=== PATIENT | male | born 1960 ===

== ENCOUNTER 2018-06-22 17:01 | Emergency (ER) | payer SELFPAY ==
[2018-06-22 17:16] VITALS: PULSE 88; RESP 18; TEMP 99.5; O2SAT 99; BMI 26.6
--- NOTE | 2018-06-22 17:57 | C.PDOC ---
History Of Present Illness 57 year old male presents to the ED for evaluation of right wrist pain which began around 3 days ago. Patient states he was working, pulling on tree with a rope when he well backwards and smacked his right wrist against the ground. Patient denies falling onto the wrist and denies the tree falling on his wrist. Patient reports pain and stiffness to the area, and reports pain when trying to lift something heavy. Patient denies head injury, LOC, neck pain, extremity numbness/weakness. Time Seen by Provider: 06/22/18 17:34 Chief Complaint (Nursing): Finger,Hand,&Wrist History Per: Patient History/Exam Limitations: no limitations Onset/Duration Of Symptoms: Days (3) Current Symptoms Are (Timing): Still Present Quality: "Pain" Additional History Per: Patient Past Medical History Reviewed: Historical Data, Nursing Documentation, Vital Signs Vital Signs: Last Vital Signs Temp 99.5 F 06/22/18 17:08 Pulse 88 06/22/18 17:08 Resp 18 06/22/18 17:08 BP 166/113 H 06/22/18 17:08 Pulse Ox 99 06/22/18 17:08 - Medical History PMH: No Chronic Diseases Surgical History: No Surg Hx Family History: States: Unknown Family Hx - Social History Hx Alcohol Use: No Hx Substance Use: No - Immunization History Hx Tetanus Toxoid Vaccination: No Hx Influenza Vaccination: No Hx Pneumococcal Vaccination: No Review Of Systems Musculoskeletal: Positive for: Other (right wrist pain ) Neurological: Negative for: Weakness, Numbness, Other (LOC, head injury ) Physical Exam - Physical Exam Appears: Non-toxic, No Acute Distress Skin: Normal Color, Warm, Dry Extremity: No Normal ROM (slightly limited ROM of right wrist secondary to pain ), Tenderness (around right wrist ), Capillary Refill (less than 2 seconds ), No Swelling Pulses: Left Radial: Normal, Right Radial: Normal Neurological/Psych: Normal Speech, Normal Cognition, Normal Sensation ED Course And Treatment O2 Sat by Pulse Oximetry: 99 (on RA ) Pulse Ox Interpretation: Normal Medical Decision Making Medical Decision Making: Progress: Right wrist XR ordered and reviewed. Motrin PO, Norvasc PO, and Tylenol PO given. Sugartong splint applied to right wrist by CP and was checked by me. Disposition Counseled Patient/Family Regarding: Studies Performed, Diagnosis, Need For Followup, Rx Given - Disposition Referrals: Isaura,Imran, MD [Staff Provider] - [facility] [Outside] Disposition: HOME/ ROUTINE Disposition Time: 17:55 Condition: STABLE Prescriptions: amLODIPine [Norvasc] 5 mg PO DAILY #30 tab Ibuprofen [Motrin] 600 mg PO TID #15 tab Instructions: Wrist Fracture (DC) Forms: Gen Discharge Inst [place], [facility] ([place]), Work Excuse - POA Present On Arrival: None - Clinical Impression Clinical Impression: Wrist fracture, right, Hypertension - Scribe Statement The provider has reviewed the documentation as recorded by the Scribe (Jennifer Hilliard) Provider Attestation: All medical record entries made by the Scribe were at my direction and personally dictated by me. I have reviewed the chart and agree that the record accurately reflects my personal performance of the history, physical exam, medical decision making, and the department course for this patient. I have also personally directed, reviewed, and agree with the discharge instructions and disposition.
--- NOTE | 2018-06-22 18:33 | RAD ---
Date of service: 06/22/2018 PROCEDURE: Right Wrist Radiographs. HISTORY: fall COMPARISON: None. FINDINGS: BONES: No acute fracture. Probable old ununited ulnar styloid process fracture. There is a well-corticated minimally fragment. JOINTS: Normal. No dislocation. SOFT TISSUES: Normal. OTHER FINDINGS: None. IMPRESSION: No acute fracture. Probable old ununited ulnar styloid process fracture
[2018-06-22 19:06] VITALS: BP 159/99
== END 2018-06-22 18:48 | disposition home or self-care (01) ==
LOC: C.ER 17:01
DX: S62.101A Fracture of unspecified carpal bone, right wrist, initial encounter for closed fracture (principal); W18.30XA Fall on same level, unspecified, initial encounter; Y92.89 Other specified places as the place of occurrence of the external cause; Y99.0 Civilian activity done for income or pay